=== PATIENT | female | born 1995 | race Caucasian/White ===

== ENCOUNTER 2019-05-29 00:13 | Emergency (ER) | payer BC, SELFPAY ==
[2019-05-29 00:14] VITALS: BP 107/62; PULSE 85; RESP 15; TEMP 36.6; O2SAT 99; BMI 29.9
[2019-05-29 00:59] LABS: Absolute Lymphocyte Count 6.04 X10^3/uL (0.83-4.51); Absolute Neutrophil Count 2.3 X10^3/uL (2.0-7.7); Basophil# 0.09 X10^3/uL; Hematocrit 35.5 % (37-47); Hemoglobin 11.4 g/dL (12.0-15.0); Lymphocyte # 6.04 X10^3/ul (4.0); Lymphocyte % 67.6 % (19-41); Mean Corp Hgb Conc 32.1 g/dL (32-36); Mean Corpuscular Hgb 25.4 pg (27.0-32.0); Mean Corpuscular Volume 79.1 fL (81-99); Mean Platelet Vol. 9.8 fl (6.2-12.0); Monocyte# 0.44 X10^3/uL; Monocyte% 4.9 % (0-10); NRBC Flagged by Analyzer 0 % (0-5); Neutrophil # 2.32 X10^3/uL (2.7-7.7); Neutrophil % 25.9 % (47-70); POSITIVE DIFFERENTIAL YES; POSITIVE MORPHOLOGY YES; Platelet Count 190 K/mm3 (150-450); RBC Distribution Width CV 14.4 % (11.6-14.6); RBC Distribution Width SD 41.5 fl (35.1-43.9); Red Blood Count 4.49 M/mm3 (4.2-5.4); White Blood Count 8.9 K/mm3 (4.4-11.0)
[2019-05-29 01:08] LABS: Differential Indicated SCAN CRITERIA MET
[2019-05-29 01:12] LABS: Anion Gap 7 (5-15); BUN 11 mg/dL (7-18); BUN/Creat Ratio 13.5 RATIO (10-20); Chloride 103 mmol/L (98-107); Creatinine, Serum 0.81 mg/dL (0.55-1.02); EST Glomerular Filtration Rate 93 mL/min (>60); Est Glom Filt Rate - Afr Amer 113 mL/min (>60); Estimated Creatinine Clearance 101.99 ml/min; Glucose 96 mg/dL (74-106); Potassium 3.7 mmol/L (3.5-5.1); Sodium Level 137 mmol/L (136-145)
[2019-05-29 01:25] LABS: Internal QC Validated? YES +Cl - CLEAR BKGD; Pregnancy, Serum, hCG Quali. NEGATIVE Negative
[2019-05-29 01:50] LABS: Bacteria 0 SEEN /hpf (None Seen); Mucous, Urine 0 SEEN /hpf (<or=2+)
[2019-05-29 01:52] LABS: Differential Comment SCANNED; Reactive Lymphocyte 3+
[2019-05-29 01:52] LABS: Color, Urine Yellow (Yellow); Glucose, Dipstick Normal (Normal); Ketone-Dipstick 5 mg/dl (Negative); Leukocyte Esterase-Dipstick 100 /ul (Negative); Nitrite-Dipstick Negative (Negative); Occult Blood-Urine 150 /ul (Negative); Protein-Dipstick Negative (Negative); Urine Bilirubin Dipstick Negative (Negative); Urine Clarity Sl. Cloudy (Clear); Urine Urobilinogen Normal (Normal)
[2019-05-29 01:58] LABS: Red Blood Cells-Urine 0-5 SEEN /hpf (0-5); Squamous Epithelial Cells - UA 5-10 SEEN /hpf (5-10); White Blood Cells 5-10 SEEN /hpf (0-5)
[2019-05-29 02:00] LABS: AST(SGOT) 80 U/L (15-37); Alanine Aminotransfer ALT/SGPT 177 U/L (13-56); Albumin, Serum 3.4 g/dL (3.2-5.0); Alkaline Phosphatase 151 U/L (45-117); Bilirubin, Direct 1.49 mg/dL (0.00-0.30); Globulin 4.3 g/dL (2.2-4.2); Lipase 117 U/L (73-393); Protein, Total 7.7 g/dL (6.4-8.2)
[2019-05-29] MEDS: 0.9% Normal Saline 1,000 ML 1000 ML IV (02:05)
[2019-05-29] MEDS: Ondansetron 4 MG/2 ML Vial IV (02:05)
--- NOTE | 2019-05-29 02:25 | CT_ITS ---
HISTORY: Abdominal pain throughout WITH NAUSEA X 1 WEEK, WEAKNESS, DIZZINESS EXAMINATION: CT Abdomen And Pelvis W/ Contrast TECHNIQUE: Helically acquired images were obtained of the abdomen and pelvis following IV contrast. A radiation dose optimization technique was used for this scan. IV Contrast dosage and agent: 100ML oral Gastrografin ; 100mL and 100mL Isovue-300 100ML IV Oral contrast: Yes COMPARISON: None FINDINGS: Lower thorax: Clear. No pleural effusion or pericardial effusion No radiopaque gallstones and no biliary dilatation. Normal liver and pancreas. Spleen: Mild splenomegaly with the spleen measuring 13.7 cm in length. No focal splenic lesion. Both kidneys are normal in position. Bilateral renal opacification without evidence of hydronephrosis, pyelonephritis, or suspicious renal lesion. The adrenal glands are not enlarged. Normal abdominal aorta and IVC. No ascites or retroperitoneal lymph node enlargement. GI tract: No obstruction. Normal appendix. No colitis seen. Pelvis: Anteverted uterus which is normal in size. Normal urinary bladder. No free fluid or lymph node enlargement. Bones: No acute osseous abnormality. CT/Abdomen/Pelvis WITH Contrast IMPRESSION: 1. Mild splenomegaly, nonspecific. Infectious mononucleosis would be included in the differential. 2. Otherwise negative exam. Normal appendix. No acute abdominal disease identified. Individualized dose optimization techniques were used for this CT. at 0419 Reported and signed by: Merritt Douglas MD Electronically Signed: Merritt Douglas, at 4:18 EDT Tel , Service support ,
--- NOTE | 2019-05-29 03:23 | ED.DCSUM_ITS ---
- ER Visit Summary Date of Service: 05/29/19 Chief Complaint: Abdominal pain History of Present Illness: The patient is a 23 F who presents with abdominal pain that is been getting worse over the past 1-1/2 weeks. Patient states the pain is been constant. Patient describes pain as aching but sharp at times. Patient states the pain is worse on her right side but is diffuse. Patient states the pain is worse after eating. Patient admits to nausea but denies any vomiting. Patient denies any diarrhea, melena, or hematochezia. Patient denies any dysuria or hematuria. Patient states her last menstrual period was 05/24/19. Patient does admit to subjective chills. Physical Examination: Vital signs are stable. Patient is afebrile. Patient is in no acute distress. Oral mucosa is pink and moist. Neck is supple. Trachea is midline. There is no JVD noted. Heart was regular rate and rhythm. Lungs are clear and equal bilaterally. Abdomen is soft. Bowel sounds are normal. There is diffuse tenderness. There is no rebound or guarding noted. Cranial nerves II through XII are intact. There are no focal motor or sensory deficits noted. Test Results: CBC shows slight anemia with a hemoglobin of 11.4 and hematocrit 35.5. Basic metabolic profile was within normal limits. Hepatic profile showed a total bilirubin of 2.2 and a direct bilirubin of 1.49. Alk phos was slightly elevated at 151, ALT was elevated at 177 and AST was elevated at 80. Urinalysis does not show any evidence of urinary tract infection. CT scan of the abdomen and pelvis with oral and IV contrast was obtained. There is mild splenomegaly noted but is otherwise negative. This was interpreted by the radiologist and reviewed by myself. Emergency Department Course and Treatment: Patient was given IV fluids and Zofran here. Patient was feeling better on reevaluation. Patient was instructed to follow-up with her primary care physician in 3 to 5 days. Patient was instructed to eat a bland diet. Patient was instructed to return if worse in any way. Patient understood and was agreeable with the plan. All questions were answered. Disposition: Discharge home Impression: Abdominal pain This note was generated with [employer] dictation software. It may contain incorrect words, spelling, and punctuation that were not noted in review of the chart prior to signing ED Disposition - Plan for ED Patient: Disposition: Home or Assisted Living Diagnosis: Abdominal pain Instructions: ABDOMINAL PAIN, Unknown Cause, (Female) Referrals: JOSH ROBERTS [Other] - 3-5 Days
[2019-05-29 04:44] VITALS: BP 124/73; PULSE 65; RESP 16; O2SAT 100
== END 2019-05-29 04:45 | disposition home or self-care (01) ==
PROVIDERS: Emergency Provider Emergency Medicine
DX: R10.9 Unspecified abdominal pain (principal); R11.0 Nausea; R68.83 Chills (without fever); R16.1 Splenomegaly, not elsewhere classified
CPT/HCPCS: 74177; 80048; 80076; 81001; 83690; 84703; 85025; 96361; 96374; 99283; J7030; Q9967; A4216; J2405